=== PATIENT | female | born 1970 | race Two or more races ===

== ENCOUNTER 2019-06-16 18:48 | Emergency (ER) | payer OTHER ==
[~2019-06-16] VITALS: Ht 154.9 cm; Wt 86.3 kg
[~2019-06-16 18:48] MED LIST: ASCO500T8 PO; FESOL PO
[2019-06-16 19:01] VITALS: BP 150/75
[2019-06-16] MEDS ORDERED: ACETAMINOPHEN 325 MG TABLET PO ONE (19:30)
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
[2019-06-16] MEDS ORDERED: ACETAMINOPHEN 325 MG TABLET ONE (19:50)
== END 2019-06-16 20:30 | disposition home or self-care (01) ==
LOC: ED 20:22
DX: S46.911A Strain of unspecified muscle, fascia and tendon at shoulder and upper arm level, right arm, initial encounter (principal); S70.01XA Contusion of right hip, initial encounter; S39.012A Strain of muscle, fascia and tendon of lower back, initial encounter; E89.0 Postprocedural hypothyroidism; V49.59XA Passenger injured in collision with other motor vehicles in traffic accident, initial encounter; Y93.89 Activity, other specified; Y92.488 Other paved roadways as the place of occurrence of the external cause; Y99.8 Other external cause status
CPT/HCPCS: 72110; 99284